=== PATIENT | male | born 1950 | race Caucasian/White ===

== ENCOUNTER → 2021-09-17 16:43 | Outpatient (CLI) | payer MEDICARE, SELFPAY ==
--- NOTE | 2021-09-17 | DI.RAD.S_ITS ---
PROCEDURE: XR RIBS RT MIN 3V W CXR 1V INDICATIONS: TRAUMATIC INJURY OF RIGHT RIBS TECHNIQUE: 2 views of the right ribs were acquired, along with a single view chest. COMPARISON: None. FINDINGS: Surgical changes and devices: None. Bones and chest wall: Very subtle contour irregularity involving right lateral 6 and 7th rib is seen which may represent subtle nondisplaced fractures in this area. No other rib fracture is seen.. No suspicious bony lesions. Overlying soft tissues appear unremarkable. Lungs and pleura: No pleural effusions or pneumothorax. Lungs appear clear. Mediastinum: Mediastinal contours appear normal. Heart size is normal. IMPRESSION: Finding may represent very subtle nondisplaced right lateral 6th and 7th rib fractures. No acute cardiopulmonary pathology. Dictated by: Alfa Garcia M.D. on 09/18/2021 at 9:47 Approved by: Alfa Garcia M.D. on 09/18/2021 at 10:03
== END ==
PROVIDERS: Referring Provider Internal Medicine; Visit Provider Internal Medicine
DX: S29.9XXA Unspecified injury of thorax, initial encounter (principal); X58.XXXA Exposure to other specified factors, initial encounter
CPT/HCPCS: 71101

== ENCOUNTER → 2022-08-09 10:03 | Outpatient (CLI) | payer MEDICARE, SELFPAY ==
--- NOTE | 2022-08-09 | DI.RAD.S_ITS ---
PROCEDURE: XR LUMBAR SPINE 2-3V INDICATIONS: right-sided low back pain w/o sciatica TECHNIQUE: 3 views of the lumbar spine were acquired. COMPARISON: None. FINDINGS: Bones: 5 [id number] vertebrae are present. There is normal bony alignment. No acute vertebral body compression fractures. Moderate-severe multilevel lumbar spondylosis with disc space loss, degenerative endplate changes, and endplate osteophytes. There is moderate-severe mid and lower lumbar facet arthropathy. Findings are most severe at L4-5 and L5-S1. No suspicious bony lesions. Soft tissues: Overlying bowel gas pattern is normal. No suspicious soft tissue calcifications. IMPRESSION: Lumbar spine without acute osseous abnormalities. Moderate-severe multilevel lumbar spondylosis most pronounced at L4-5 and L5-S1. Dictated by: Juan Madrigal M.D. on 08/09/2022 at 15:21 Approved by: Juan Madrigal M.D. on 08/09/2022 at 15:22
== END ==
PROVIDERS: PCP Student in an Organized Health Care Education/Training Program; Referring Provider Student in an Organized Health Care Education/Training Program; Visit Provider Student in an Organized Health Care Education/Training Program
DX: M47.816 Spondylosis without myelopathy or radiculopathy, lumbar region (principal); M47.817 Spondylosis without myelopathy or radiculopathy, lumbosacral region; M54.50 Low back pain, unspecified
CPT/HCPCS: 72100

== ENCOUNTER → 2023-03-05 16:37 | Outpatient (CLI) | payer MEDICARE, SELFPAY ==
--- NOTE | 2023-03-05 | DI.US.S_ITS ---
PROCEDURE: US ABDOMEN LIMITED INDICATIONS: Other intra-abdominal and pelvic swelling, mass an TECHNIQUE: Real-time scanning was performed of the abdominal and retroperitoneal organs, with image documentation. COMPARISON: None. FINDINGS: There is a fat and fluid containing periumbilical hernia which is non reducible. The neck measures approximately 13 x 8 mm. Ascites was incidentally noted in the lower abdomen which was moderate in quantity. IMPRESSION: 1. Non reducible periumbilical hernia. 2. Ascites. Dictated by: Sachin Santos M.D. on 03/06/2023 at 10:41 Approved by: Sachin Santos M.D. on 03/06/2023 at 10:43
== END ==
PROVIDERS: PCP Student in an Organized Health Care Education/Training Program; Referring Provider Student in an Organized Health Care Education/Training Program; Visit Provider Student in an Organized Health Care Education/Training Program
DX: K42.0 Umbilical hernia with obstruction, without gangrene (principal); R18.8 Other ascites
CPT/HCPCS: 76705

== ENCOUNTER → 2023-05-28 14:50 | Outpatient (CLI) | payer MEDICARE, SELFPAY ==
--- NOTE | 2023-05-28 14:51 | DI.US.S_ITS ---
PROCEDURE: US ABDOMEN LIMITED INDICATIONS: ASCITES TECHNIQUE: Real-time focused scanning was performed of the abdomen, with image documentation. COMPARISON: [facility], , US ABDOMEN LIMITED, 03/05/2023, 16:47. FINDINGS: Scan is performed within all 4 quadrants of the abdomen. No ascites is seen. Incidental note is made of multiple gallstones within the gallbladder lumen, with the largest measuring up to 1.2 cm. The gallbladder wall is not thickened. IMPRESSION: No ascites is now seen. Multiple gallstones are incidentally noted. No additional sonographic signs of cholecystitis are seen. Dictated by: Charles Carvalho M.D. on 05/28/2023 at 17:34 Approved by: Charles Carvalho M.D. on 05/28/2023 at 17:35
== END ==
PROVIDERS: PCP Student in an Organized Health Care Education/Training Program; Referring Provider Student in an Organized Health Care Education/Training Program; Visit Provider Student in an Organized Health Care Education/Training Program
DX: R18.8 Other ascites (principal); K80.20 Calculus of gallbladder without cholecystitis without obstruction
CPT/HCPCS: 76705

== ENCOUNTER 2023-06-20 13:18 | Day surgery (SDC) | payer MEDICARE, SELFPAY ==
[2023-06-17 14:46] VITALS: BMI 24.1
--- NOTE | 2023-06-20 | PATH_ITS ---
[facility] Accession Number: [id number] No. of containers..01 Tissue . 01 Material submitted: . gallbladder - GALLBLADDER . 01 Diagnosis: A. Gallbladder, Cholecystectomy: Chronic cholecystitis and cholelithiasis. Negative for dysplasia and malignancy. MRV 07/01/2023 1506 Local . 01 Electronically signed: . Reyna Gupta MD, Pathologist NPI- [id number] . 01 Gross description: . The specimen is received in formalin labeled with the patient's name, , and gallbladder, and consists of a disrupted gallbladder measuring 5.6 x 2.5 x 2.5 cm. A full thickness defect measures 0.4 cm in greatest dimension. The cystic duct margin is inked blue and no pericystic lymph node is identified. The lumen contains multiple black, roughened calculi measuring up to 0.8 cm in greatest dimension grossly obstructing the cystic duct and admixed with dark green viscous bile. The mucosa is green and velvety with no yellow discoloration, polyps, or lesions identified. The navarro average 0.3 cm thick. Plater Apprentice sections to include the cystic duct margin and full thickness sections are submitted in cassette A1. ([id number]) /DARLYN 06/21/2023 2212 Local . 01 Pathologist provided ICD-10: K80.11 . 01 CPT . 248819 Specimen Comment: A courtesy copy of this report has been sent to [phone] Performed at: 01 [facility] [address] [place] [address], [place], [place] [id number] MD Giovani Castellano MD Phone: [phone]
[2023-06-20] MEDS: LACTATED RINGERS 1,000 ML 21 ML IV (13:42)
[2023-06-20 13:47] VITALS: BP 123/85; PULSE 82; RESP 18; TEMP 36.2; O2SAT 98; BMI 23.7
--- NOTE | 2023-06-20 14:50 | PM.PREOP ---
Pre-operative Note Interval Note History & Physical reviewed/Exam performed by Physician: Yes Changes to H&P: No
[2023-06-20] MEDS: CEFAZOLIN 2 GM/100 ML PREMIX 100 ML IV (15:09)
--- NOTE | 2023-06-20 15:10 | P.OP_ITS ---
Operative Date/Time/Diagnoses Date of procedure: 06/20/23 Time of procedure: 17:42 Pre-op diagnosis: Biliary colic Umbilical hernia Post-op diagnosis: same Procedure & Clinicians Procedure: Laparoscopic cholecystectomy Open umbilical hernia repair Same procedure as scheduled: Yes Indications: 72-year-old man with symptoms and radiographic findings consistent with biliary colic and a reducible umbilical hernia. Surgeon: Bebeto Kohler Operative Notes Findings: Critical view of safety established. Umbilical fascial defect less than 1 cm Specimen(s): other (Gallbladder) Estimated Blood Loss (mL): 20 Procedure in detail: The patient was placed supine on the table and bilateral lower extremity compression devices were applied. Anesthesia was induced they were intubated with an endotracheal tube and received 2g of Ancef. A time-out was performed. They were prepped and draped in sterile fashion. An infraumbilical incision was made. The abdomen was entered through the umbilical fascial defect.. A blunt tip 12mm balloon trocar was then inserted, pneumoperitoneum was established and inspection of the abdomen demonstrated no evidence of injury. They were placed head up and right side up and then a 11 mm port was placed high in the epigastrium and two 5mm in the right upper quadrant. The gallbladder was grasped by the fundus and retracted over the liver and retracted laterally by the infundibulum. Using electrocautery the lateral plane between the gallbladder and the liver was opened towards the fundus. The gallbladder was t hen retracted laterally and the medial plane was developed in the same manner. With the gallbladder mobilized the bottom of the cystic plate was visualized. The hepatocystic triangle was meticulosly skeletonized with blunt dissection of fat and fibrous tissue from both the front and the back. Only two structures were then clearly seen entering the gallbladder the cystic duct and the cystic artery. With the critical view of safety fully established the cystic duct was clipped twice proximally and once distally using the 10 mm Weck hemoclip applied under direct visualization and then sharply divided. The cystic artery was divided in the same fashion. The gallbladder was removed from the liver bed using electro cautery. The liver bed was then inspected for hemostasis and this was achieved. The abdomen was irrigated with sterile saline and inspection was made that showed the clips in good position. The specimen was removed using Endo-Catch. The abdomen was desufflated. The umbilical hernia was examined the fascial defect was approximately 1 cm in maximal diameter and we chose to close this fascial defect with interrupted Ethibond suture without the use of mesh. The fascia came together without any tension. Skin incisions were irrigated and closed with 4-0 Monocryl. 30 ml of 0.25% bupivacaine was infiltrated into the subcutaneous tissue of the incisions. The wounds were sealed with Dermabond. Patient emerged from anesthesia was extubated and transferred to recovery in stable condition. The sponge and instrument count at the end of the operation was correct. Complications: none Post-operative Condition: stable Disposition: same day surgery
--- NOTE | 2023-06-20 15:41 | SUR.OPER ---
Supine on padded OR bed, head on pillow, safety belt at thigh, left arm padded and tucked at side. Right arm secured on padded arm board <90 degrees abduction. Legs uncrossed. Padded footboard in place. Tape over blanket to secure lower legs.
--- NOTE | 2023-06-20 15:55 | PM.PROC.1 ---
Procedures Date/Time Date of procedure: 06/20/23 Time of procedure: 15:15 Intubation Additional comments: difficult airway encountered. 1st DL with mac 3. grade iv view. repositioned patient. v/s/s. 2nd DL with mac 3 grade 3 view. v/s/s. manual ventilation successful. called for back up provider and glidescope. DL 3 with 2nd provider alfonso 3 grade 3 view. manual ventilated until glidescope brought into room. v/s/s. using glide scope with lopro s4 able to visualize grade 1 view. pt does appear to have a narrow glottic opening. successful intubation achieved. v/s/s throughout. pt given difficult airway alert form.
[2023-06-20] MEDS: BUPIVACAINE 0.25% (PF) VIAL 30 ML INJ (15:59)
[2023-06-20 17:00] VITALS: BP 136/86; PULSE 73; RESP 20; TEMP 36.4; O2SAT 97
[2023-06-20] MEDS: OXYCODONE/ACETAMINOPHEN 5/325 TABLET 1 TAB PO (17:04)
[2023-06-20 17:05] VITALS: BP 140/70; PULSE 67; RESP 12; O2SAT 99
[2023-06-20 17:10] VITALS: BP 142/86; PULSE 73; RESP 17; O2SAT 99
[2023-06-20] MEDS: HYDROMORPHONE 1 MG INJ IV (17:10)
[2023-06-20 17:25] VITALS: BP 138/81; PULSE 75; RESP 12; O2SAT 98
[2023-06-20 17:40] VITALS: BP 133/80; PULSE 81; RESP 12; TEMP 36.2; O2SAT 98
== END 2023-06-20 17:55 | disposition home or self-care (01) ==
PROVIDERS: PCP Student in an Organized Health Care Education/Training Program; Referring Provider Surgery; Visit Provider Surgery
PROC: 0FT44ZZ Resection of Gallbladder, Percutaneous Endoscopic Approach (ICD-10-PCS; CPT 47562; principal; 2023-06-20 14:30)
PROC: (CPT 47562; 2023-06-20 14:30)
DX: K80.10 Calculus of gallbladder with chronic cholecystitis without obstruction (principal); K42.9 Umbilical hernia without obstruction or gangrene
CPT/HCPCS: 47562; J0330; J0690; J1100; J1170; J2250; J2405; J2704; J3010

== ENCOUNTER → 2024-10-27 09:08 | Outpatient (CLI) | payer MEDICARE, SELFPAY ==
--- NOTE | 2024-10-27 09:10 | DI.US.S_ITS ---
PROCEDURE: US PERIPH VENOUS LOW EXTREM LT INDICATIONS: PAIN IN LLE TECHNIQUE: Real-time imaging, as well as color and pulse Doppler interrogation, were performed of the lower extremity deep veins from the inguinal ligament to the popliteal fossa, with documentation of the visualized calf veins. COMPARISON: None. FINDINGS: The common femoral, femoral, popliteal, and the visualized calf veins are normally compressible, and free of intraluminal thrombus. Color and pulse Doppler demonstrate normal phasic intraluminal flow. There is normal augmentation response to distal compression maneuver. At the left medial popliteal fossa, there is an 8.6 x 5.2 x 3.3 cm hypoechoic fluid collection with internal debris, extending along a craniocaudal orientation. There is mild perifascial hyperechogenicity. IMPRESSION: 1. No sonographic evidence of left lower extremity deep vein thrombosis. 2. Possible 8.6 cm Davis's cyst with recent leakage. Please correlate for a history of sudden onset popliteal fossa pain. If concordant, consider an MRI of the knee without contrast for evaluation of underlying intra-articular pathology. Dictated by: Silverio Vera M.D. on 10/27/2024 at 12:40 Approved by: Silverio Vera M.D. on 10/27/2024 at 12:43
== END ==
PROVIDERS: PCP Family Medicine; Referring Provider Nurse Practitioner Family; Visit Provider Nurse Practitioner Family
DX: M79.605 Pain in left leg (principal)
CPT/HCPCS: 93971

== ENCOUNTER → 2024-11-03 11:30 | Outpatient (CLI) | payer MEDICARE, SELFPAY ==
--- NOTE | 2024-11-03 11:31 | DI.MRI.S_ITS ---
PROCEDURE: MR KNEE LT WO CON INDICATIONS: Knee pain, history of prior meniscal surgery. TECHNIQUE: Noncontrast sagittal PD fast spin echo and T2 fast spin echo with fat saturation, sagittal 3-D FLASH with fat saturation; coronal T1 spin echo and PD fast spin echo with fat saturation, and axial PD fast spin echo with fat saturation through the knee. COMPARISON: None. FINDINGS: Image quality: Excellent. Menisci: The medial meniscus is diminutive, consistent with remote prior partial meniscectomy. There is linear oblique and horizontal high T2 signal intensity within the posterior horn and body of the medial meniscal remnant, demonstrating superior and inferior articular surface extension. Additionally, there is a parameniscal cyst posteriorly measuring 23 mm craniocaudal. Lateral meniscus demonstrates a discoid configuration . There is linear horizontal high T2 signal intensity traversing the inner, middle, and peripheral thirds of the posterior horn lateral meniscus, demonstrating inferior articular surface extension, indicating horizontal tearing. Cruciate ligaments: The anterior and posterior cruciate ligaments appear intact. Medial structures: The medial collateral ligament appears intact. Visualized portions of the pes anserinus tendons appear normal. There is moderate T2 signal elevation within and surrounding the semimembranosus at the tibial insertion site. Moderate medial bursal fluid. Lateral structures: The lateral collateral ligament demonstrates mild T2 signal elevation at the femoral origin. The long and short heads of the biceps femoris tendon appear intact. The popliteus tendon appears normal. Iliotibial band appears normal. Anterior structures: The quadriceps and patellar tendons appear intact. Patellar alignment is normal. No femoral trochlear dysplasia or ventral trochlear prominence. No edema in the infrapatellar fat pad. Bones and cartilage: No bone marrow contusions or fractures. There is mild tricompartmental periarticular osteophyte formation. Mild subchondral degenerative marrow edema and subchondral cyst formation within the medial femoral condyle and medial tibial plateau. Severe articular cartilage loss diffusely overlies the weight-bearing aspects of the medial femoral condyle and medial tibial plateau. Joint space: There is a small knee joint effusion and a small Davis's cyst. Normal appearing synovial plicae are incidentally noted. IMPRESSION: 1. Postsurgical sequelae. Tearing of the medial meniscal remnant with parameniscal cyst formation. 2. Discoid lateral meniscus with superimposed horizontal tearing. 3. Partial-thickness lateral collateral ligament tear. 4. Medial compartment articular cartilage loss. 5. Partial-thickness tearing of the semimembranosus tendon associated with insertional tendinitis of the semimembranosus. 6. Medial bursitis. 7. Knee joint effusion and Davis's cyst. Dictated by: Jorge Serrano M.D. on 11/03/2024 at 13:17 Approved by: Jorge Serrano M.D. on 11/03/2024 at 13:21
== END ==
PROVIDERS: PCP Family Medicine; Referring Provider Nurse Practitioner Family; Visit Provider Nurse Practitioner Family
DX: S83.242A Other tear of medial meniscus, current injury, left knee, initial encounter (principal); S83.282A Other tear of lateral meniscus, current injury, left knee, initial encounter; S76.812A Strain of other specified muscles, fascia and tendons at thigh level, left thigh, initial encounter; M71.562 Other bursitis, not elsewhere classified, left knee; M25.562 Pain in left knee; M25.462 Effusion, left knee; M71.22 Synovial cyst of popliteal space [Baker], left knee
CPT/HCPCS: 73721

== ENCOUNTER → 2025-04-07 10:22 | Outpatient (CLI) | payer MEDICARE, SELFPAY ==
--- NOTE | 2025-04-07 10:24 | DI.RAD.S_ITS ---
PROCEDURE: XR CHEST 2V INDICATIONS: PRE OP TECHNIQUE: 2 views of the chest were acquired. COMPARISON: None. FINDINGS: Heart, mediastinum and pulmonary vascular: Heart is normal in size and configuration. Mediastinum is unremarkable. Pulmonary vascular is normal. Lungs: Clear Pleural spaces: Normal-no effusions or pneumothorax. Bones and soft tissues: Normal IMPRESSION: Normal chest. Dictated by: Adryan Martinez M.D. on 04/08/2025 at 7:11 Approved by: Adryan Martinez M.D. on 04/08/2025 at 7:56
== END ==
LOC: RAD 10:23
PROVIDERS: PCP Family Medicine; Referring Provider Family Medicine; Visit Provider Family Medicine
DX: Z01.818 Encounter for other preprocedural examination (principal); M17.12 Unilateral primary osteoarthritis, left knee
CPT/HCPCS: 71046